=== PATIENT | female | born 1970 | race Caucasian/White ===

== ENCOUNTER 2020-04-01 12:11 | Inpatient (IN) ==
[2020-04-01] MEDS ORDERED: 0.9 % Sodium Chloride 1,000 ML IVC ONE ×2 (12:34→13:16)
[2020-04-01 12:56] LABS: Hemoglobin 8.2 g/dL (11.5-15.4); Mean Platelet Volume 11.2 fL (9.4-12.4)
[2020-04-01 12:58] LABS: Hematocrit 25.1 % (35.3-44.9); Immature Platelets 6.9 % (1.1-6.1); Lymphocytes # 0.3 K/mcL (0.6-4.6); Mean Corpuscular HGB Conc 32.7 g/dL (31.6-35.5); Mean Corpuscular Hemoglobin 36.4 pg (28.0-33.3); Mean Corpuscular Volume 111.6 fL (83.0-100.0); Monocytes # 0.2 K/mcL (0.0-1.3); Red Blood Count 2.25 M/mcL (3.82-4.97); Red Cell Distribution Width 17.8 % (11.5-14.5)
[2020-04-01 12:59] LABS: Platelet Count 72 K/mcL (140-400)
[2020-04-01 13:04] LABS: White Blood Count 0.5 K/mcL (4.3-11.1)
[2020-04-01 13:15] LABS: Calcium 9.2 mg/dL (8.6-10.3); Potassium 3.8 mEq/L (3.5-5.1)
[2020-04-01 13:24] LABS: Bilirubin,Urine Negative (Negative); Blood,Urine Large (Negative); Clarity,Urine Ex.Turbid (Clear); Color,Urine Light-Orange (Yellow); Glucose,Urine (UA) Normal (Normal); Ketones,Urine Negative (Negative); Leukocyte Esterase,Urine Large (Negative); Nitrite,Urine Positive (Negative); PH,Urine 6.5 pH Units (5.0-8.0); Protein,Urine >=300 mg/dL (Neg-Trace); Specific Gravity,Urine 1.019 (1.010-1.025); Urobilinogen,Urine Normal (Normal)
[2020-04-01 13:34] LABS: Bacteria,Urine Moderate per hpf (None-Few); Squamous Epithelial Cell,Urine Few per hpf (None-Few); WBC,Urine 50-100 per hpf (0-3)
[2020-04-01 13:37] LABS: Platelet Estimate Marked Decrease (Normal)
[2020-04-01 13:38] LABS: Macrocytosis Present (Not Present)
[2020-04-01] MEDS ORDERED: cefTRIAXone 1,000 MG in Water for inj. (sterile) 10 ML IVP ONE (13:40)
[2020-04-01] MEDS ORDERED: Isovue-370 500 ML BOTTLE IVP ONE (13:53)
[2020-04-01] MEDS ORDERED: Naloxone 0.4 MG/ML INJ IVP PRN (15:28)
[2020-04-01] MEDS ORDERED: Ondansetron 4 MG/2 ML VIAL IVP PRN (15:28)
[2020-04-01] MEDS ORDERED: Acetaminophen 325 MG TABLET PO PRN (15:28)
[2020-04-01] MEDS: Piperacillin/Tazobactam 3.375 GM in 0.9 % Sodium Chloride Mini Bag 100 ML IVPB SCH ×2 (16:27→23:24)
[2020-04-01 16:52] LABS: Adenovirus Not Detected (Not Detect); Bordetella Pertussis Not Detected (Not Detect); Chlamydophila pneumoniae Not Detected (Not Detect); Coronavirus 229E Not Detected (Not Detect); Coronavirus HKU1 Not Detected (Not Detect); Coronavirus NL63 Not Detected (Not Detect); Coronavirus OC43 Not Detected (Not Detect); Human Metapneumovirus Not Detected (Not Detect); Human Rhinovirus/Enterovirus Not Detected (Not Detect); Influenza A Subtype 2009 H1 Not Detected (Not Detect); Influenza B Not Detected (Not Detect); Mycoplasma pneumoniae Not Detected (Not Detect); Parainfluenza Virus 1 Not Detected (Not Detect); Parainfluenza Virus 2 Not Detected (Not Detect); Parainfluenza Virus 3 Not Detected (Not Detect); Parainfluenza Virus 4 Not Detected (Not Detect); Respiratory Syncytial Virus Not Detected (Not Detect)
[2020-04-01] MEDS: Vancomycin 1,500 MG/265 ML IV.SOLN IVPB SCH (17:58)
[2020-04-01] MEDS: 0.9 % Sodium Chloride 1,000 ML IVC SCH (19:27)
[2020-04-01] MEDS ORDERED: OLANZAPINE 5 MG PO SCH (21:00)
[2020-04-01] MEDS ORDERED: dexAMETHasone 4 MG TABLET PO SCH (21:00)
[2020-04-02 01:05] LABS: Red Cell Distribution Width 17.9 % (11.5-14.5)
[2020-04-02 01:07] LABS: Basophils % 1.2 %; Eosinophils % 1.2 %; Hematocrit 21.3 % (35.3-44.9); Hemoglobin 6.9 g/dL (11.5-15.4); Immature Granulocytes % 3.5 % (0-4); Immature Platelets 6.7 % (1.1-6.1); Lymphocytes # 0.6 K/mcL (0.6-4.6); Lymphocytes % 69.4 %; Mean Corpuscular HGB Conc 32.4 g/dL (31.6-35.5); Mean Corpuscular Hemoglobin 36.1 pg (28.0-33.3); Mean Corpuscular Volume 111.5 fL (83.0-100.0); Mean Platelet Volume 11.5 fL (9.4-12.4); Monocytes # 0.2 K/mcL (0.0-1.3); Monocytes % 24.7 %; Red Blood Count 1.91 M/mcL (3.82-4.97)
[2020-04-02 01:08] LABS: Platelet Count 58 K/mcL (140-400)
[2020-04-02 01:25] LABS: Anisocytosis 1+ (Not Present); Macrocytosis Present (Not Present); Platelet Estimate Decreased (Normal); White Blood Count 0.9 K/mcL (4.3-11.1)
[2020-04-02 01:27] LABS: Calcium 8.6 mg/dL (8.6-10.3); Magnesium 1.3 mg/dL (1.6-2.6); Potassium 3.6 mEq/L (3.5-5.1)
[2020-04-02 01:49] LABS: Folate 9.2 ng/mL (3.0-16.0)
[2020-04-02] MEDS: 0.9 % Sodium Chloride 1,000 ML IVC SCH ×2 (05:14→20:20)
[2020-04-02] MEDS: Piperacillin/Tazobactam 3.375 GM in 0.9 % Sodium Chloride Mini Bag 100 ML IVPB SCH ×2 (08:56→15:54)
[2020-04-02 10:21] LABS: Mean Corpuscular HGB Conc 31.8 g/dL (31.6-35.5); Red Cell Distribution Width 17.8 % (11.5-14.5)
[2020-04-02 10:23] LABS: Immature Platelets 8.4 % (1.1-6.1); Lymphocytes # 0.5 K/mcL (0.6-4.6); Lymphocytes % 54.7 %; Mean Corpuscular Hemoglobin 35.7 pg (28.0-33.3); Mean Corpuscular Volume 112.2 fL (83.0-100.0); Mean Platelet Volume 12.1 fL (9.4-12.4); Monocytes # 0.3 K/mcL (0.0-1.3); Monocytes % 31.4 %; Neutrophils # 0.1 K/mcL (1.6-8.9); Red Blood Count 1.96 M/mcL (3.82-4.97); Segmented Neutrophils % 13.9 %
[2020-04-02 10:26] LABS: Platelet Count 54 K/mcL (140-400)
[2020-04-02 10:29] LABS: White Blood Count 0.9 K/mcL (4.3-11.1)
[2020-04-02 10:51] LABS: Anisocytosis 1+ (Not Present); Platelet Estimate Marked Decrease (Normal)
[2020-04-02 10:52] LABS: Macrocytosis Present (Not Present)
[2020-04-02] MEDS: Vancomycin 1,500 MG/265 ML IV.SOLN IVPB SCH (16:11)
[2020-04-03] MEDS: Piperacillin/Tazobactam 3.375 GM in 0.9 % Sodium Chloride Mini Bag 100 ML IVPB SCH ×2 (00:12→08:42)
[2020-04-03 05:45] LABS: Hematocrit 20.5 % (35.3-44.9); Hemoglobin 6.5 g/dL (11.5-15.4); Immature Platelets 9.9 % (1.1-6.1); Mean Corpuscular HGB Conc 31.7 g/dL (31.6-35.5); Mean Corpuscular Hemoglobin 35.9 pg (28.0-33.3); Mean Corpuscular Volume 113.3 fL (83.0-100.0); Mean Platelet Volume 11.9 fL (9.4-12.4); Monocytes # 0.5 K/mcL (0.0-1.3); Nucleated Red Blood Cells 1.3 /100 WBC (0); Red Blood Count 1.81 M/mcL (3.82-4.97); Red Cell Distribution Width 17.9 % (11.5-14.5); White Blood Count 2.4 K/mcL (4.3-11.1)
[2020-04-03 06:01] LABS: Calcium 8.8 mg/dL (8.6-10.3); Magnesium 1.8 mg/dL (1.6-2.6); Potassium 3.4 mEq/L (3.5-5.1)
[2020-04-03 06:02] LABS: Platelet Count 52 K/mcL (140-400)
[2020-04-03 06:29] LABS: Anisocytosis 2+ (Not Present); Hypochromasia Present (Not Present); Lymphocytes # 0.8 K/mcL (0.6-4.6); Macrocytosis Present (Not Present); Microcytosis Present (Not Present); Neutrophils # 1.2 K/mcL (1.6-8.9); Platelet Estimate Marked Decrease (Normal); Toxic Granulation Present (Not Present)
[2020-04-03] MEDS ORDERED: Potassium Chloride 20 MEQ, Lidocaine 1% 2 ML in 0.9 % Sodium Chloride 250 ML IVPB ONE (08:51)
[2020-04-03] MEDS ORDERED: 0.9 % Sodium Chloride 250 ML ONE (10:12)
[2020-04-03] MEDS: cefTRIAXone 2,000 MG in Water for inj. (sterile) 20 ML IVP SCH (11:48)
[2020-04-03] MEDS: 0.9 % Sodium Chloride 1,000 ML IVC SCH (15:41)
[2020-04-03] MEDS ORDERED: Vancomycin 1,750 MG/517.5 ML IV.SOLN IVPB SCH (16:00)
[2020-04-04 00:58] LABS: Hemoglobin 7.2 g/dL (11.5-15.4)
[2020-04-04 01:00] LABS: Hematocrit 22.5 % (35.3-44.9); Immature Platelets 10.4 % (1.1-6.1); Lymphocytes # 1.3 K/mcL (0.6-4.6); Mean Corpuscular Hemoglobin 34.4 pg (28.0-33.3); Mean Corpuscular Volume 107.7 fL (83.0-100.0); Mean Platelet Volume 11.3 fL (9.4-12.4); Nucleated Red Blood Cells 1.5 /100 WBC (0); Red Blood Count 2.09 M/mcL (3.82-4.97); Red Cell Distribution Width 20.4 % (11.5-14.5); White Blood Count 6.1 K/mcL (4.3-11.1)
[2020-04-04 01:03] LABS: BUN/Creatinine Ratio 6 (6-26); Blood Urea Nitrogen 6 mg/dL (6-20); Calcium 8.5 mg/dL (8.6-10.3); Carbon Dioxide 21 mEq/L (23-29); Chloride 107 mEq/L (98-107); Glucose 90 mg/dL (70-105); Magnesium 1.5 mg/dL (1.6-2.6); Osmolality,Calculated 281 (280-300); Potassium 3.3 mEq/L (3.5-5.1); Sodium 137 mEq/L (136-145); eGFR For African Americans > 60 (> 60); eGFR For Non-African Americans 56 (> 60)
[2020-04-04 01:04] LABS: Platelet Count 45 K/mcL (140-400)
[2020-04-04 01:24] LABS: Monocytes # 0.6 K/mcL (0.0-1.3); Neutrophils # 4.2 K/mcL (1.6-8.9)
[2020-04-04 01:26] LABS: Anisocytosis 1+ (Not Present); Hypochromasia Present (Not Present); Microcytosis Present (Not Present); Platelet Estimate Marked Decrease (Normal)
[2020-04-04 01:27] LABS: Polychromasia 1+ (Not Present)
[2020-04-04 08:14] VITALS: BP 110/73
[2020-04-04] MEDS: cefTRIAXone 2,000 MG in Water for inj. (sterile) 20 ML IVP SCH (09:00)
== END 2020-04-04 12:06 | disposition home or self-care (01) | DRG 871 ==
LOC: EMEROOARM 12:11 → 3ANU 12:11 → SUATTDRO 15:35 → 3ANU 17:19
PROVIDERS: ADMIT Pharmacist; ATTEND Pharmacist